=== PATIENT | female | born 1955 | race Caucasian/White ===

== ENCOUNTER 2019-10-02 12:27 | Emergency (ER) | payer MEDICAID ==
[~2019-10-02] VITALS: Ht 177.8 cm; Wt 56.2 kg
[2019-10-02 12:38] VITALS: BP 134/111
[2019-10-02] MEDS ORDERED: HYDROCODONE/APAP 5/325MG 1 EACH TABLET ONE (12:42)
[2019-10-02] MEDS ORDERED: HYDROCODONE/APAP 5/325MG 1 EACH TABLET PO ONE (13:00)
[2019-10-02] MEDS ORDERED: LIDOCAINE 1%-EPI 1:100,000 20 ML VIAL ONE (13:46)
== END 2019-10-02 14:50 | disposition home or self-care (01) ==
LOC: ER 12:27
DX: M25.462 Effusion, left knee (principal); X50.1XXA Overexertion from prolonged static or awkward postures, initial encounter; Y93.89 Activity, other specified; Y92.89 Other specified places as the place of occurrence of the external cause; Y99.8 Other external cause status
CPT/HCPCS: 20610; 36415; 73564; 89051; 99284; A6403; J3490